=== PATIENT | male | born 1985 | race Caucasian/White ===

== ENCOUNTER → 2024-01-08 10:16 | Outpatient (BNVA) | payer MEDICAID, SELFPAY | PROVIDERS: PCP Internal Medicine; Visit Provider Nurse Practitioner Psychiatric/Mental Health ==

== ENCOUNTER 2024-01-16 09:22 | Outpatient (AMB) | payer MEDICAID, SELFPAY ==
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
[2024-01-16 10:00] VITALS: BP 182/100; PULSE 91; RESP 20; O2SAT 90
== END 2024-01-16 10:23 | disposition home or self-care (01) ==
PROVIDERS: PCP Internal Medicine; Visit Provider Nurse Practitioner Psychiatric/Mental Health
DX: F11.21 Opioid dependence, in remission (principal)
CPT/HCPCS: 99204

== ENCOUNTER → 2024-01-16 09:22 | Outpatient (BNVA) | payer MEDICAID, SELFPAY | PROVIDERS: PCP Internal Medicine; Visit Provider Nurse Practitioner Psychiatric/Mental Health | DX: F11.21 Opioid dependence, in remission (principal) | CPT/HCPCS: 99212 ==

== ENCOUNTER 2024-01-26 12:59 | Outpatient (AMB) | payer MEDICAID, SELFPAY ==
--- NOTE | 2024-01-26 13:05 | AM.OFFVISNUR ---
Vital Signs 01/26/24 13:06 BP 140/80 H Blood Pressure Location Rt brachial Intake Visit Reasons: MAT Allergies No Known Allergies Allergy (Unverified 11/25/19 17:10)
[2024-01-26 13:06] VITALS: BP 140/80
--- NOTE | 2024-01-26 13:55 | A.OFFVISCC_ITS ---
Vital Signs 01/26/24 13:06 BP 140/80 H Blood Pressure Location Rt brachial Intake Visit Reasons: MAT Allergies No Known Allergies Allergy (Unverified 11/25/19 17:10) HPI HPI MAT: Details: Patient presents for follow up and to discuss transition from methadone to buprenorphine Seen in office a week and a hlaf ago and at that time, his BP was extremely elevated, he was c/o lower extremity edema and SP02 was 90. Requested that he been seen in ED prior to continueing with transition to buprenorphine. He presented with paperwork from [place] ED where was worked up and medically cleared. ED provider note to be scanned into EMR. He appears much more alert, overall comfortable, no distress today. BP WNL Discussed transition plan from methadone to buprenorphine Reports he has take home bottles at home from recent [facility] appt. He discussed transition with his counselor. Reviewed day by day instructions related to methadone and buprenorophine discussed comfort meds--will send clonidine Review of Systems Const Reports as per HPI and Reports no additional complaints Physical Exam Vital Signs: Last Vital Signs BP 140/80 H 01/26/24 13:06 Const General: cooperative, healthy appearing, no acute distress and well groomed Nutritional Appearance: overweight Orientation/consciousness: patient oriented x3 Limitations: no limitations Neuro General: patient oriented x3 Psych Appearance: well kempt Speech and movement: Clear speech present Affect: normal affect Attitude: cooperative Thought process: Normal thought process present Thought content: Normal thought content present Insight: Good insight present (Psych) Assessment & Plan Assessment & Plan (1) Opioid use disorder, severe, in early remission: Code(s): F11.21 - Opioid dependence, in remission Category: Medical Plan: * methadone to buprenorphine plan reviewed * both doses of buprenorphine sent to [facility] * clonidine PRN * follow up with RN via telephone in one week --provider appt 02/12 Medications: New clonidine HCl 0.1 mg PO BID PRN 20 tabs 0RF withdrawal symptoms buprenorphine-naloxone 8-2 mg (Suboxone) 1 film sublingual TID 15 ea 0RF buprenorphine-naloxone 8-2 mg (Suboxone) start following induction with 2mg films 1 film sublingual TID 15 ea 0RF buprenorphine-naloxone 2-0.5 mg (Suboxone) 1 film sublingual BID 6 ea 0RF
== END 2024-01-26 13:53 | disposition home or self-care (01) ==
PROVIDERS: PCP Internal Medicine; Visit Provider Nurse Practitioner Psychiatric/Mental Health
DX: F11.21 Opioid dependence, in remission (principal)
CPT/HCPCS: 99214

== ENCOUNTER → 2024-01-26 12:59 | Outpatient (BNVA) | payer MEDICAID, SELFPAY | PROVIDERS: PCP Internal Medicine; Visit Provider Nurse Practitioner Psychiatric/Mental Health | DX: F11.21 Opioid dependence, in remission (principal); Z51.81 Encounter for therapeutic drug level monitoring | CPT/HCPCS: 99212 ==